=== PATIENT | male | born 1995 | race Caucasian/White ===

== ENCOUNTER 2022-11-17 11:44 | Emergency (ER) | payer OTHER ==
[2022-11-17] MEDS ORDERED: dexAMETHasone 10 MG/ML VIAL ONE (12:11)
[2022-11-17 12:43] VITALS: BP 137/87; TEMP 97.7; O2SAT 99
--- NOTE | 2022-11-30 16:14 | ER ---
Nurse's Notes [facility] Name: Lukas Couch Age: 27 yrs Sex: Male : 1995 Arrival Date: 11/17/2022 Time: 11:50 Bed IW1 Private MD: Diagnosis: Rash and other nonspecific skin eruption Presentation: 11/17 12:00 Chief complaint: Patient states: "My eczema is getting worse over the past few weeks. I mb9 just moved here so I don't have my usual prescriptions for it". Coronavirus screen: Vaccine status: Patient reports being unvaccinated. Ebola Screen: No symptoms or risks identified at this time. Initial Sepsis Screen: Does the patient meet any 2 criteria? No. Patient's initial sepsis screen is negative. Does the patient have a suspected source of infection? No. Patient's initial sepsis screen is negative. Risk Assessment: Do you want to hurt yourself or someone else? Patient reports no desire to harm self or others. Onset of symptoms was November 17, 2022. 12:00 Method Of Arrival: Ambulatory 9 12:00 Acuity: FELICIANO 4 mb9 Triage Assessment: 12:02 General: Appears in no apparent distress. Behavior is calm, cooperative, appropriate mb9 for age. Pain: Denies pain. EENT: No deficits noted. Neuro: Level of Consciousness is awake, alert, obeys commands, Oriented to person, place, time, situation, Appropriate for age. Cardiovascular: Rhythm is regular. Respiratory: Airway is patent Respiratory effort is even, unlabored, Respiratory pattern is regular, symmetrical. GI: No signs and/or symptoms were reported involving the gastrointestinal system. : No signs and/or symptoms were reported regarding the genitourinary system. Derm: Skin is intact, Skin is dry, Rash noted that is itchy, red, on face, chest, right arm, left arm, right leg and left leg. Musculoskeletal: Range of motion: intact in all extremities. Historical: - Allergies: 12:01 No Known Allergies; mb9 - PMHx: 12:01 Asthma; mb9 - PSHx: 12:01 Right knee; mb9 - Immunization history:: Adult Immunizations up to date. - Social history:: Smoking status: Reported history of juuling and/or vaping. Screenin:03 [facility] ED Fall Risk Assessment (Adult) History of falling in the last 3 months, mb9 including since admission No falls in past 3 months (0 pts) Confusion or Disorientation No (0 pts) Intoxicated or Sedated No (0 pts) Impaired Gait No (0 pts) Mobility Assist Device Used No (0 pt) Altered Elimination No (0 pt) Score/Fall Risk Level 0 - 2 = Low Risk Oriented to surroundings, Maintained a safe environment, Educated pt \\T\\ family on fall prevention, incl call for assistance when getting out of bed. Abuse screen: Denies threats or abuse. Nutritional screening: No deficits noted. Tuberculosis screening: No symptoms or risk factors identified. Assessment: 12:05 Reassessment: see triage assessment. mb9 Vital Signs: 12:00 BP 137 / 87; Pulse 73; Resp 18; Temp 97.7; Pulse Ox 99% ; Weight 79.38 kg; Height 5 ft. mb9 10 in. ; Pain 0/10; 12:00 Body Mass Index 25.11 (79.38 kg, 177.8 cm) mb9 12:00 Pain Scale: Adult mb9 ED Course: 11:50 Patient arrived in ED. mr 11:58 Irving Russo PA is PHCP. bronson 11:58 Darren Lombardo MD is Attending Physician. bronson 12:01 Triage completed. mb9 12:02 Arm band placed on. mb9 12:04 Bed in low position. Call light in reach. Side rails up X 1. Client placed on mb9 continuous cardiac and pulse oximetry monitoring. NIBP monitoring applied. 12:04 No provider procedures requiring assistance completed. Patient did not have IV access mb9 during this emergency room visit. 12:05 Suzanna Bolton, VANE is Primary Nurse. mb9 Administered Medications: 12:10 Drug: Dexamethasone IM 10 mg Route: IM; Site: right deltoid; mb9 12:10 Follow up: Response: No adverse reaction mb9 Medication: 12:04 VIS not applicable for this client. mb9 Outcome: 12:04 Discharge ordered by . bronson 12:10 Discharged to home ambulatory. mb9 12:10 Condition: stable 12:10 Discharge instructions given to patient, Instructed on discharge instructions, follow up and referral plans. Demonstrated understanding of instructions, follow-up care, medications, Prescriptions given X 2. 12:10 Patient left the ED. mb9 Signatures: Irving Russo PA PA jmm Rivera, Suzanna mr Che, Suzanna Peres, VANE RN mb9
--- NOTE | 2022-11-30 16:14 | EDPHYS ---
Physician Documentation [facility] Name: Lukas Couch Age: 27 yrs Sex: Male : 1995 Arrival Date: 11/17/2022 Time: 11:50 Bed IW1 Private MD: ED Physician Darren Lombardo HPI: 11/17 12:03 This 27 yrs old Male presents to ER via Ambulatory with complaints of Skin Problem. jmm 12:03 The patient's rash thought to be caused by Eczema. Onset: The symptoms/episode jmm began/occurred gradually, 1 month(s) ago. This is a 27 year old male with a history of asthma and eczema that presents to the ED with complaints of rash to his left arm, left axillary region. Complains of itchiness. Patient attributes this to newly moving to the area the past month. States his last episode was multiple years ago. . Historical: - Allergies: 12:01 No Known Allergies; mb9 - PMHx: 12:01 Asthma; mb9 - PSHx: 12:01 Right knee; mb9 - Immunization history:: Adult Immunizations up to date. - Social history:: Smoking status: Reported history of juuling and/or vaping. ROS: 12:03 Constitutional: Negative for fever, chills, and weight loss, Cardiovascular: Negative jmm for chest pain, palpitations, and edema, Respiratory: Negative for shortness of breath, cough, wheezing, and pleuritic chest pain. 12:03 Skin: Positive for rash. 12:03 All other systems are negative. Exam: 12:03 Constitutional: This is a well developed, well nourished patient who is awake, alert, jmm and in no acute distress. Head/Face: atraumatic. Eyes: EOMI, no conjunctival erythema appreciated ENT: Moist Mucus Membranes Neck: Trachea midline, Supple Chest/axilla: Normal chest wall appearance and motion. Cardiovascular: Regular rate and rhythm. No edema appreciated Respiratory: Normal respirations, no respiratory distress appreciated Abdomen/GI: Non distended 12:03 Skin: on the face, chest, right arm, left arm, right leg and left leg. 12:03 Neuro: Orientation: is normal, Mentation: is normal, Memory: is normal. 12:03 Psych: Behavior/mood is pleasant, cooperative. Vital Signs: 12:00 BP 137 / 87; Pulse 73; Resp 18; Temp 97.7; Pulse Ox 99% ; Weight 79.38 kg; Height 5 ft. mb9 10 in. ; Pain 0/10; 12:00 Body Mass Index 25.11 (79.38 kg, 177.8 cm) mb9 12:00 Pain Scale: Adult mb9 MDM: 12:03 Patient medically screened. [facility] 12:20 Differential diagnosis: dermatitis. Data reviewed: vital signs, nurses notes. I iram considered the following discharge prescriptions or medication management in the emergency department Medications were administered in the Emergency Department. See MAR. Counseling: I had a detailed discussion with the patient and/or guardian regarding: the historical points, exam findings, and any diagnostic results supporting the discharge/admit diagnosis, the need for outpatient follow up, to return to the emergency department if symptoms worsen or persist or if there are any questions or concerns that arise at home. ED course: Patient is alert and non toxic in appearance in the ED. Advised to follow up with pcp and otherwise given strict return precautions. Patient understood and agrees with the plan of care. . Administered Medications: 12:10 Drug: Dexamethasone IM 10 mg Route: IM; Site: right deltoid; mb9 12:10 Follow up: Response: No adverse reaction mb9 Disposition: 12:26 Co-signature as Attending Physician, Darren Lombardo MD I reviewed the patient's care rt provided by the Advanced Practice Provider and agree with the diagnosis and treatment plan. Disposition Summary: 11/17/22 12:04 Discharge Ordered Location: Home [facility] Condition: Stable [facility] Diagnosis - Rash and other nonspecific skin eruption [facility] Followup: [facility] - With: Private Physician - When: 2 - 3 days - Reason: Recheck today's complaints, Continuance of care, Re-evaluation by your physician Discharge Instructions: - Discharge Summary Sheet [facility] - Rash, Adult jmm Forms: - Medication Reconciliation Form [facility] - Thank You Letter [facility] - Antibiotic Education [facility] - Prescription Opioid Use [facility] Prescriptions: - Prednisone 20 mg Oral Tablet - take 3 tablets by ORAL route once daily for 5 days; 15 tablet; Refills: 0, [facility] Product Selection Permitted - Triamcinolone Acetonide 0.5 % Topical Cream - apply 1 application by TOPICAL route 2 times per day As needed; 1 unit; [facility] Refills: 0, Product Selection Permitted Signatures: Irving Russo PA PA jmm Breneman, Suzanna Peres, RN RN mb9 Darren Lombardo MD MD rt
== END 2022-11-17 12:10 | disposition home or self-care (01) ==
LOC: ER 11:44
DX: R21 Rash and other nonspecific skin eruption (principal)
CPT/HCPCS: 96372; 99283; J1100

== ENCOUNTER 2023-02-20 08:48 | Emergency (ER) | payer OTHER ==
--- NOTE | 2023-02-20 09:07 | ER ---
Nurse's Notes [facility] Name: Lukas Couch Age: 27 yrs Sex: Male : 1995 Arrival Date: 02/20/2023 Time: 08:48 Bed 20 Private MD: Diagnosis: Intrinsic (allergic) eczema Presentation: 02/20 08:59 Chief complaint: Patient states: Rash to body for 10 days. States it from working in 1 the heat. Coronavirus screen: Vaccine status: Patient reports being unvaccinated. Client denies travel out of the [place] in the last 14 days. At this time, the client does not indicate any symptoms associated with coronavirus-19. Ebola Screen: Patient denies travel to an Ebola-affected area in the 21 days before illness onset. Initial Sepsis Screen: Does the patient meet any 2 criteria? No. Patient's initial sepsis screen is negative. Does the patient have a suspected source of infection? Yes: Skin breakdown/wound. Risk Assessment: Do you want to hurt yourself or someone else? Patient reports no desire to harm self or others. Onset of symptoms was February 10, 2023. 08:59 Method Of Arrival: Ambulatory ll1 08:59 Acuity: FELICIANO 4 ll1 Triage Assessment: 09:00 General: Appears uncomfortable, Behavior is calm, cooperative, appropriate for age. ll1 Pain: Denies pain. Derm: Reports rash to body for 10 days. Historical: - Allergies: 08:57 No Known Allergies; ll1 - PMHx: 08:57 Asthma; eczema; ll1 - PSHx: 08:57 right knee; ll1 - Immunization history:: Client reports having NOT received the Covid vaccine. - Social history:: Smoking status: Patient reports use of chewing tobacco. Screenin:00 [facility] ED Fall Risk Assessment (Adult) Score/Fall Risk Level 0 - 2 = Low Risk. Abuse eh3 screen: Denies threats or abuse. Denies injuries from another. Nutritional screening: No deficits noted. Tuberculosis screening: No symptoms or risk factors identified. Assessment: 09:00 General: Appears in no apparent distress. uncomfortable, Behavior is calm, cooperative, eh3 appropriate for age. Pain: Denies pain. Neuro: Level of Consciousness is awake, alert, obeys commands, Oriented to person, place, time, situation. Cardiovascular: Capillary refill < 3 seconds Patient's skin is warm and dry. Respiratory: Airway is patent Respiratory effort is even, unlabored, Respiratory pattern is regular, symmetrical. GI: Abdomen is round non-distended. Derm: Rash noted that is Reports increased itching. Musculoskeletal: Circulation, motion, and sensation intact. Vital Signs: 08:59 BP 129 / 92; Pulse 80; Resp 16; Temp 98.7; Pulse Ox 96% on R/A; Weight 79.38 kg; Height ll1 5 ft. 10 in. ; Pain 0/10; 08:59 Body Mass Index 25.11 (79.38 kg, 177.8 cm) ll1 08:59 Pain Scale: Adult 1 ED Course: 08:51 Patient arrived in ED. kj1 08:54 Michael Sen MD is Attending Physician. bs3 08:57 Arm band placed on Patient placed in an exam room, on a stretcher. ll1 09:00 Triage completed. 1 09:00 Patient has correct armband on for positive identification. Bed in low position. Call 3 light in reach. 09:15 Debbie Fortune, RN is Primary Nurse. eh3 09:17 No provider procedures requiring assistance completed. Patient did not have IV access [facility] during this emergency room visit. Administered Medications: 09:15 Drug: Dexamethasone IM 10 mg Route: IM; Site: right deltoid; 3 09:15 Follow up: Response: Medication administered at discharge. 3 Medication: 09:17 VIS not applicable for this client. eh3 Outcome: 09:06 Discharge ordered by . bs3 09:17 Discharged to home ambulatory. 3 09:17 Condition: stable 09:17 Discharge instructions given to patient, Instructed on discharge instructions, follow up and referral plans. medication usage, Demonstrated understanding of instructions, follow-up care, medications, Prescriptions given X 2. 09:17 Patient left the ED. 3 Signatures: Marci Starks kj1 Brittny Pineda RN RN 1 Debbie Fortune, VANE RN 3 Michael Sen MD MD 3
--- NOTE | 2023-02-20 09:07 | EDPHYS ---
Physician Documentation [facility] Name: Lukas Couch Age: 27 yrs Sex: Male : 1995 Arrival Date: 02/20/2023 Time: 08:48 Bed 20 Private MD: ED Physician Michael Sen HPI: 02/20 09:05 This 27 yrs old Male presents to ER via Ambulatory with complaints of Skin bs3 Problem. 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 Historical: - Allergies: 08:57 No Known Allergies; ll1 - PMHx: 08:57 Asthma; eczema; ll1 - PSHx: 08:57 right knee; ll1 - Immunization history:: Client reports having NOT received the Covid vaccine. - Social history:: Smoking status: Patient reports use of chewing tobacco. ROS: 09:05 Constitutional: Negative for fever, chills bs3 09:05 All other systems are negative. Exam: 09:05 Constitutional: This is a well developed, well nourished patient who is awake, alert, bs3 and in no acute distress. Head/Face: Normocephalic, atraumatic. Eyes: Pupils equal round and reactive to light, extra-ocular motions intact. Lids and lashes normal. ENT: mmm, no posterior phyarngeal erythema Neck: Trachea midline, no thyromegaly, no neck stiffness Chest/axilla: Normal chest wall appearance and motion. Nontender with no deformity. No lesions are appreciated. Cardiovascular: Regular rate and rhythm with a normal S1 and S2. symmetric pulses in upper extremities Respiratory: Lungs have equal breath sounds bilaterally, clear to auscultation, no respiratory distress Abdomen/GI: Soft, non-tender, no rebound or guarding Skin: He has several lesions which are dry scaly mostly on his neck and right arm he has no lesions on his palms or soles Vital Signs: 08:59 BP 129 / 92; Pulse 80; Resp 16; Temp 98.7; Pulse Ox 96% on R/A; Weight 79.38 kg; Height ll1 5 ft. 10 in. ; Pain 0/10; 08:59 Body Mass Index 25.11 (79.38 kg, 177.8 cm) ll1 08:59 Pain Scale: Adult ll1 MDM: 08:54 Patient medically screened. bs3 09:05 Data reviewed: vital signs, nurses notes. ED course: Patient with possible eczema bs3 advised outpatient follow-up with dermatology. Administered Medications: 09:15 Drug: Dexamethasone IM 10 mg Route: IM; Site: right deltoid; 3 09:15 Follow up: Response: Medication administered at discharge. 3 Disposition Summary: 02/20/23 09:06 Discharge Ordered Location: Home bs3 Problem: an acute exacerbation bs3 Symptoms: have improved bs3 Condition: Stable bs3 Diagnosis - Intrinsic (allergic) eczema bs3 Followup: bs3 - With: Private Physician - When: 1 week - Reason: Re-evaluation by your physician Discharge Instructions: - Discharge Summary Sheet bs3 - Eczema bs3 Forms: - Medication Reconciliation Form bs3 - Thank You Letter bs3 - Antibiotic Education bs3 - Prescription Opioid Use bs3 Prescriptions: - Triamcinolone Acetonide 0.1 % Topical Ointment - apply 1 application by TOPICAL route every 12 hours As needed; 80 gram tube; bs3 Refills: 0, Product Selection Permitted - Prednisone 20 mg Oral Tablet - take 2 tablets by ORAL route once daily for 5 days; 10 tablet; Refills: 0, bs3 Product Selection Permitted Signatures: Brittny Pineda RN RN 1 Debbie Fortune RN RN 3 Micheal Sen MD MD bs3
[2023-02-20] MEDS ORDERED: dexAMETHasone 10 MG/ML VIAL ONE (09:18)
[2023-02-20 09:22] VITALS: BP 129/92; TEMP 98.7; O2SAT 96
== END 2023-02-20 09:17 | disposition home or self-care (01) ==
LOC: ER 08:48
DX: L20.84 Intrinsic (allergic) eczema (principal)
CPT/HCPCS: 96372; 99284; J1100